=== PATIENT | female | born 1950 | race Caucasian/White ===

== ENCOUNTER 2024-09-09 17:53 | Observation (INO) | payer OTHER ==
[~2024-09-09] VITALS: Ht 162.5 cm; Wt 84.8 kg
[2024-09-09 17:58] VITALS: BP 103/54
[2024-09-09] MEDS ORDERED: SODIUM CHLORIDE 0.9% 1,000 ML IV ONE ×2 (18:00→18:50)
[2024-09-09 18:15] LABS: BASO # 0.0 10*3/uL (0.0-0.1); BASO % 0.4 % (0.0-1.0); EOS # 0.1 10*3/uL (0.0-0.4); EOS % 0.6 % (1.0-4.0); MEAN CELL VOLUME 86.9 fl (81.0-99.0); MEAN CORPUSCULAR HGB 27.7 pg (27.0-31.0); MEAN PLATELET VOLUME 9.4 fl (9.6-12.3); MONO # 0.7 10*3/uL (0.1-1.0); MONO % 5.8 % (3.0-9.0); NEUT # 7.9 10*3/uL (2.3-7.9); NEUT % 69.4 % (47.0-73.0); NUCLEATED RED BLOOD CELL 0.0 % (0.0-0.0); NUCLEATED RED BLOOD CELL 0.0 10*3/uL (0.0-0.0); PLATELET COUNT AUTOMATED 314 10*3/uL (130-400); RED CELL DISTRI WIDTH 14.0 % (0-14.5)
[2024-09-09 18:33] LABS: BUN 50 mg/dl (9-23); ETHYL ALCOHOL < 3.0 mg/dl (<3)
[2024-09-09] MEDS ORDERED: INSULIN REGULAR, HUMAN 1 UNIT/0.01 ML IV ONE (18:50)
[2024-09-09 20:30] VITALS: BP 123/68
[2024-09-09 21:26] LABS: BILIRUBIN Negative (Negative); BLOOD 2+ (Negative); CLARITY Turbid (Clear); COLOR Yellow (Yellow); KETONE Negative (Negative); LEUKO ESTERASE 3+ (Negative); NITRITE Positive (Negative); PH 5.0 (4.5-8.0); SPECIFIC GRAVITY 1.015 (1.001-1.030); UROBILINOGEN 0.2 E.U./dl (0.0-1.0)
[2024-09-09] MEDS ORDERED: ASPIRIN 325 MG ENTERIC COATED PO ONE (21:30)
[2024-09-09 21:33] LABS: BACTERIA 3+; RBC 16-20 rbc/hpf (0-2); URINE AMPHETAMINES Negative (1000ng/ml); URINE BARBITURATES Negative (200ng/ml); URINE BENZODIAZEPINES Negative (200ng/ml); URINE CANNABINOIDS (THC) Negative (50ng/ml); URINE COCAINE Negative (300ng/ml); URINE METHADONE Negative (300ng/ml); URINE OPIATES Negative (300ng/ml); URINE PHENCYCLIDINE Negative (25ng/ml); WBC TNTC wbc/hpf (0-5)
[2024-09-09] MEDS ORDERED: BISACODYL 10 MG SUPP R PRN (22:25)
[2024-09-09] MEDS ORDERED: BISACODYL 5 MG TAB PO PRN (22:25)
[2024-09-09] MEDS ORDERED: DEXTROSE 50% 25 GM/50 ML VIAL IV PRN (22:40)
[2024-09-09 22:54] VITALS: BP 122/50
[2024-09-09] MEDS ORDERED: Ondansetron Hydrochloride 4 MG/2 ML VIAL IV PRN (23:25)
[2024-09-10] MEDS ORDERED: ACETAMINOPHEN 325 MG TAB PO PRN (01:20)
[2024-09-10 04:38] VITALS: BP 104/42
[2024-09-10 05:08] LABS: BUN 47 mg/dl (9-23); FREE T4 1.17 ng/dl (0.89-1.76); LDL CHOLESTEROL 60 mg/dL (9-159)
[2024-09-10 05:09] LABS: SGPT/ALT < 7 U/L (5-49)
[2024-09-10 06:19] LABS: BASO # 0.0 10*3/uL (0.0-0.1); BASO % 0.3 % (0.0-1.0); EOS # 0.1 10*3/uL (0.0-0.4); EOS % 0.7 % (1.0-4.0); MEAN CELL VOLUME 88.3 fl (81.0-99.0); MEAN CORPUSCULAR HGB 27.5 pg (27.0-31.0); MEAN PLATELET VOLUME 10.0 fl (9.6-12.3); MONO # 0.9 10*3/uL (0.1-1.0); MONO % 7.7 % (3.0-9.0); NEUT # 6.5 10*3/uL (2.3-7.9); NEUT % 59.2 % (47.0-73.0); NUCLEATED RED BLOOD CELL 0.0 % (0.0-0.0); NUCLEATED RED BLOOD CELL 0.0 10*3/uL (0.0-0.0); PLATELET COUNT AUTOMATED 276 10*3/uL (130-400); RED CELL DISTRI WIDTH 14.3 % (0-14.5)
[2024-09-10] MEDS ORDERED: INSULIN LISPRO 1 UNIT/0.01 ML SQ SCH (07:30)
[2024-09-10 08:07] LABS: VITAMIN D, 25-HYDROXY 24.7 ng/mL (30-100)
[2024-09-10 09:11] VITALS: BP 106/35
[2024-09-10] MEDS ORDERED: ZESTORETIC 10-1 EACH PO (09:32)
[2024-09-10] MEDS ORDERED: PRAVASTATIN SOD40 MG PO (09:32)
[2024-09-10] MEDS ORDERED: GLIMEPIRIDE4 M1 PO (09:33)
[2024-09-10] MEDS ORDERED: BASAG SOL SQ (09:34)
[2024-09-10] MEDS ORDERED: ATORVASTATIN CALCIUM 80 MG TAB PO SCH (10:00)
[2024-09-10] MEDS ORDERED: ASPIRIN ENTERIC COATED 81 MG TAB PO SCH (10:00)
[2024-09-10 12:00] VITALS: BP 106/76
[2024-09-10] MEDS ORDERED: SODIUM CHLORIDE 0.9% 1,000 ML IV ONE (13:50)
[2024-09-10 16:00] VITALS: BP 98/42
[2024-09-10 20:00] VITALS: BP 91/44
[2024-09-10] MEDS ORDERED: Insulin Glargine, Recombinan 1 UNIT/0.01 ML SC SCH (22:00)
[2024-09-10] MEDS ORDERED: DICLOFENAC SODIUM 100 GM TUBE T SCH (22:00)
[2024-09-11] VITALS: BP 139/45
[2024-09-11 05:59] LABS: BASO # 0.0 10*3/uL (0.0-0.1); BASO % 0.2 % (0.0-1.0); EOS # 0.3 10*3/uL (0.0-0.4); EOS % 3.5 % (1.0-4.0); MEAN CELL VOLUME 88.5 fl (81.0-99.0); MEAN CORPUSCULAR HGB 27.9 pg (27.0-31.0); MEAN PLATELET VOLUME 9.7 fl (9.6-12.3); MONO # 0.7 10*3/uL (0.1-1.0); MONO % 8.4 % (3.0-9.0); NEUT # 3.8 10*3/uL (2.3-7.9); NEUT % 46.8 % (47.0-73.0); NUCLEATED RED BLOOD CELL 0.0 % (0.0-0.0); NUCLEATED RED BLOOD CELL 0.0 10*3/uL (0.0-0.0); PLATELET COUNT AUTOMATED 258 10*3/uL (130-400); RED CELL DISTRI WIDTH 14.6 % (0-14.5)
[2024-09-11 06:09] LABS: BUN 38.0 mg/dl (9-23)
[2024-09-11 08:00] VITALS: BP 92/63
[2024-09-11] MEDS ORDERED: SODIUM CHLORIDE 0.9% 1,000 ML IV ONE (08:55)
[2024-09-11] MEDS ORDERED: Cholecalciferol 2,000 UNIT TABLET (50 MCG) PO SCH (10:00)
[2024-09-11] MEDS ORDERED: Nitrofurantoin Monohydrate/N 100 MG CAP PO SCH (10:00)
[2024-09-11] MEDS ORDERED: SODIUM POLYSTYRENE SULFONATE 15 GM/60 ML BOT PO ONE (10:10)
[2024-09-11 12:00] VITALS: BP 141/50
[2024-09-11 16:00] VITALS: BP 138/74
[2024-09-11 20:00] VITALS: BP 150/62
[2024-09-12] VITALS: BP 141/56
[2024-09-12 06:36] LABS: BASO # 0.0 10*3/uL (0.0-0.1); BASO % 0.4 % (0.0-1.0); EOS # 0.3 10*3/uL (0.0-0.4); EOS % 3.9 % (1.0-4.0); MEAN CELL VOLUME 89.3 fl (81.0-99.0); MEAN CORPUSCULAR HGB 27.7 pg (27.0-31.0); MEAN PLATELET VOLUME 9.6 fl (9.6-12.3); MONO # 0.6 10*3/uL (0.1-1.0); MONO % 8.7 % (3.0-9.0); NEUT # 3.4 10*3/uL (2.3-7.9); NEUT % 47.8 % (47.0-73.0); NUCLEATED RED BLOOD CELL 0.0 % (0.0-0.0); NUCLEATED RED BLOOD CELL 0.0 10*3/uL (0.0-0.0); PLATELET COUNT AUTOMATED 269 10*3/uL (130-400); RED CELL DISTRI WIDTH 14.6 % (0-14.5)
[2024-09-12 06:59] LABS: BUN 25 mg/dl (9-23)
[2024-09-12 08:00] VITALS: BP 157/55
[2024-09-12] MEDS ORDERED: GADOTERATE MEGLUMINE 10 MMOL/20 ML VIAL IV ONE ×2 (08:26→09:34)
[2024-09-12] MEDS ORDERED: SODIUM CHLORIDE 0.9% 0 ML IV ONE (08:27)
[2024-09-12] MEDS ORDERED: SODIUM CHLORIDE 0.9% 50 ML IV ONE (09:34)
[2024-09-12 12:00] VITALS: BP 155/69
[2024-09-12] MEDS ORDERED: OMNICEF300 MG PO (12:17)
[2024-09-12] MEDS ORDERED: ASPIRIN81 M1 PO (12:17)
[2024-09-12] MEDS ORDERED: VITAMIN D350 MCG PO (12:17)
== END 2024-09-12 14:30 | disposition home or self-care (01) ==
LOC: ED 17:53 → 4E 21:26 → EDHOLD 21:26 → 4E 09-10 11:15
PROVIDERS: Emergency Medicine; Student in an Organized Health Care Education/Training Program; ADMIT Family Medicine; ATTEND Family Medicine
DX: G45.9 Transient cerebral ischemic attack, unspecified (principal); E11.65 Type 2 diabetes mellitus with hyperglycemia; E87.1 Hypo-osmolality and hyponatremia; D64.9 Anemia, unspecified; D72.829 Elevated white blood cell count, unspecified; N17.0 Acute kidney failure with tubular necrosis; N39.0 Urinary tract infection, site not specified; E44.0 Moderate protein-calorie malnutrition; E55.9 Vitamin D deficiency, unspecified; G93.41 Metabolic encephalopathy; I10 Essential (primary) hypertension; E78.5 Hyperlipidemia, unspecified; I63.9 Cerebral infarction, unspecified; Z79.899 Other long term (current) drug therapy